=== PATIENT | female | born 2000 | race Caucasian/White ===

== ENCOUNTER 2024-01-16 19:40 | Emergency (ER) | payer OTHER, SELFPAY ==
[2024-01-16 19:50] VITALS: BP 132/74; PULSE 103; RESP 16; TEMP 37.1; O2SAT 98
--- NOTE | 2024-01-16 19:54 | ED.URI ---
HPI - URI/Sore Throat General Chief Complaint: Upper Respiratory Infection Stated Complaint: exposed to covid History of Present Illness HPI Narrative: patient is a 23-year-old female, without significant past medical history, presents to [facility] with 24 hour history of sore throat, body aches, chills, headache and diarrhea. She has developed a slight cough this evening. She states that her boss has had similar symptoms that she feels that possibly may have COVID but that box has not tested for any infectious processes. She denies any additional associated symptoms, she has no abdominal pain, no urinary symptoms, no chance of . She has not tested for COVID at home. She is not taking any [id number] medications for symptom relief at present. She states that she has a flow trip that she is supposed to attend tomorrow does not want to go, she is requesting a note so that she may provide that to her friends they do not think she is faking. Related Data Home Medications Medication Instructions Recorded Confirmed lamotrigine 25 mg tablet mg 01/16/24 risperidone 1 mg tablet mg 01/16/24 sertraline 50 mg tablet mg 01/16/24 Allergies Allergy/AdvReac Type Severity Reaction Status Date / Time No Known Allergies Allergy Verified 01/16/24 19:47 Review of Systems ENT: Comments: Refer to HPI Respiratory: Comments: refer to HPI Gastrointestinal: Comments: diarrhea without hematochezia or melena, no abdominal pain Exam Const: General: healthy appearing, no acute distress and alert Nutritional Appearance: well nourished Orientation/consciousness: patient oriented x3 Limitations: no limitations HENMT: Head: normal to inspection Ears: external ears normal and TM abnormal ( TMs are retracted bilaterally with serous pattern, no erythema or purulenc) Face and sinus: normal facial exam Mouth: Yes Normal oral and palatal mucosa present, Yes lip normal and Yes moist mucous membranes Other: no erythema or injection noted to the pharyngeal mucosa, no exudate Eyes: Conjunctivae: conjunctivae normal EOM: EOMs intact bilaterally Neck: Neck: normal visual inspection, no lymphadenopathy and no meningeal signs Resp: Effort & Inspection: normal respiratory effort Auscultation: clear to auscultation bilaterally Cardio: Rate: regular rate Rhythm: regular rhythm GI: GI Palp: Yes Soft to palpation, No Tenderness to palpation present (GI), No Guarding due to palpation present (GI), No Rigid due to palpation, No Hernia present, No Palpable mass present and No Rebound tenderness present Back/Spine/Pelvis: Back: no CVA tenderness Skin: General skin exam: normal color Rashes: no rashes Wounds: no wounds Neuro: General: patient oriented x3, moves all extremities, no meningeal signs, no focal motor deficits and CN's II-XI intact bilaterally Cranial nerves: Yes Nystagmus not present Speech: normal speech Gait exam (Neuro): Normal gait present Extrem: General: normal to inspection Course Course Emergency Course: suspect viral infection, patient has no known COVID exposures, she is advised treatment is supportive, including pushing fluids, rest, short steroid course as discussed for serous pattern to TMs bilaterally as well as a cough suppressant. patient is encouraged to monitor her temperature at home to know she is afebrile as this is her of monitoring contagiousness. Patient verbalized understanding she is agreeable with discharge plan of care. Level of Care: Express Care Visit (12341) MDM - URI/Sore Throat MDM Narrative Medical decision making narrative: Prednisone, promethazine DM, pushing fluids and rest, ER if condition worsens Differential Diagnosis Differential diagnosis: Likely upper respiratory infection, viral infection, bronchitis, influenza and other ( COVID, gastroenteritis) Discharge Plan Discharge Clinical Impression: Viral infection Patient Disposition: Home
== END 2024-01-16 20:04 | disposition home or self-care (01) ==
PROVIDERS: Emergency Provider Nurse Practitioner Family
DX: B34.9 Viral infection, unspecified (principal)
CPT/HCPCS: 99213; G0463